=== PATIENT | male | born 1970 | race Caucasian/White ===

== ENCOUNTER 2024-11-09 11:07 | Outpatient (CLI) | payer OTHER | END 2024-11-09 11:08 | disposition home or self-care (01) | LOC: MRI 11:07 | PROVIDERS: ATTEND Family Medicine Sports Medicine | DX: S83.242A Other tear of medial meniscus, current injury, left knee, initial encounter (principal); M79.89 Other specified soft tissue disorders; R93.7 Abnormal findings on diagnostic imaging of other parts of musculoskeletal system; M22.2X2 Patellofemoral disorders, left knee ==